=== PATIENT | male | born 1945 | race African-American/Black ===

== ENCOUNTER 2020-10-10 03:18 | Emergency (ER) | payer OTHER, MEDICAID ==
[~2020-10-10] VITALS: Ht 180.3 cm; Wt 100.0 kg
[2020-10-10 04:16] VITALS: BP 166/88
== END 2020-10-10 04:29 | disposition home or self-care (01) ==
LOC: ER 03:18
DX: R33.9 Retention of urine, unspecified (principal)
CPT/HCPCS: 51702; 99284

== ENCOUNTER 2020-12-06 10:34 | Emergency (ER) | payer OTHER, MEDICAID ==
[~2020-12-06] VITALS: Ht 180.3 cm; Wt 102.0 kg
[2020-12-06 11:01] VITALS: BP 186/79
== END 2020-12-06 11:43 | disposition home or self-care (01) ==
LOC: ER 11:42
DX: T83.018A Breakdown (mechanical) of other urinary catheter, initial encounter (principal); Y84.6 Urinary catheterization as the cause of abnormal reaction of the patient, or of later complication, without mention of misadventure at the time of the procedure; Y92.9 Unspecified place or not applicable; N40.0 Benign prostatic hyperplasia without lower urinary tract symptoms; Z90.5 Acquired absence of kidney; Z90.81 Acquired absence of spleen; Z98.890 Other specified postprocedural states
CPT/HCPCS: 51702; 99284; A4315

== ENCOUNTER 2020-12-21 22:04 | Emergency (ER) | payer OTHER, MEDICAID ==
[~2020-12-21] VITALS: Ht 180.3 cm; Wt 100.0 kg
[2020-12-22 01:21] VITALS: BP 157/94
== END 2020-12-22 01:25 | disposition home or self-care (01) ==
LOC: ER 22:04
DX: T83.038A Leakage of other urinary catheter, initial encounter (principal); N40.0 Benign prostatic hyperplasia without lower urinary tract symptoms; Z90.5 Acquired absence of kidney; Z90.81 Acquired absence of spleen; Y84.6 Urinary catheterization as the cause of abnormal reaction of the patient, or of later complication, without mention of misadventure at the time of the procedure; Y92.018 Other place in single-family (private) house as the place of occurrence of the external cause
CPT/HCPCS: 99284